=== PATIENT | female | born 1940 | race Caucasian/White ===

== ENCOUNTER → 2017-06-03 | Emergency (ER) | payer OTHER ==
[~2017-06-03] VITALS: Ht 147.3 cm; Wt 64.0 kg
[~2017-06-03] MED LIST: CLONAZEPAM0.5 MG; ESCITALOPRAM OX10 MG; MONTELUKAST SOD10 MG; PREDNISONE10 MG/DOSE PO; SKELAXIN800 MG PO; TYLENOL EXTRA500 MG PO; VALSARTAN-HCTZ1 EAC4
== END | disposition home or self-care (01) ==
LOC: ER 16:26
DX: R42 Dizziness and giddiness (principal)

== ENCOUNTER 2017-07-09 11:32 | Inpatient (IN) | payer OTHER ==
[~2017-07-09] VITALS: Ht 154.9 cm; Wt 63.5 kg
== END 2017-07-12 11:44 | disposition designated cancer center or children's hospital (05) | DRG 282 ==
LOC: ER 11:32 → MEDJ 13:00 → ER 07-10 22:33 → MEDI 07-10 22:33 → MEDJ 07-10 22:33 → SURH 07-11 00:24 → MEDJ 07-11 00:24 → SURH 07-11 00:31 → MEDJ 07-11 07:40 → MEDI 07-11 08:20 → SURH 07-11 08:20 → MEDJ 07-11 08:20
PROC: 4A12X4Z Monitoring of Cardiac Electrical Activity, External Approach (ICD-10-PCS; principal; 2017-07-10)
DX: I21.4 Non-ST elevation (NSTEMI) myocardial infarction (principal); I24.9 Acute ischemic heart disease, unspecified; R42 Dizziness and giddiness; I25.10 Atherosclerotic heart disease of native coronary artery without angina pectoris

== ENCOUNTER 2017-08-19 10:10 | Outpatient (CLI) | payer OTHER | END 2017-08-19 11:00 | disposition home or self-care (01) | LOC: NUCLEAR 10:10 | DX: I20.1 Angina pectoris with documented spasm (principal); I25.118 Atherosclerotic heart disease of native coronary artery with other forms of angina pectoris | CPT/HCPCS: 78452; 93017; A9500 ==

== ENCOUNTER → 2017-12-09 | Outpatient (CLI) | payer OTHER | END | disposition home or self-care (01) | LOC: MRI 09:34 | DX: M54.5 Low back pain (principal); M54.16 Radiculopathy, lumbar region | CPT/HCPCS: 72148 ==

== ENCOUNTER → 2018-01-20 | Outpatient (CLI) | payer OTHER | END | disposition home or self-care (01) | LOC: RAD 11:22 | DX: J45.998 Other asthma (principal) ==

== ENCOUNTER → 2018-05-25 | Outpatient (CLI) | payer OTHER | END | disposition home or self-care (01) | LOC: RAD 11:50 | DX: M17.12 Unilateral primary osteoarthritis, left knee (principal) ==

== ENCOUNTER → 2020-05-21 | Outpatient (CLI) | payer OTHER | END | disposition home or self-care (01) | LOC: RAD 15:27 | PROVIDERS: ATTEND Physical Medicine & Rehabilitation | DX: M43.17 Spondylolisthesis, lumbosacral region (principal); M19.071 Primary osteoarthritis, right ankle and foot; M54.5 Low back pain; M20.41 Other hammer toe(s) (acquired), right foot; M20.42 Other hammer toe(s) (acquired), left foot ==

== ENCOUNTER 2022-04-28 15:02 | Outpatient (CLI) | payer OTHER | END 2022-04-28 15:30 | disposition home or self-care (01) | LOC: TOM 15:02 | PROVIDERS: ATTEND Physical Medicine & Rehabilitation | DX: M54.17 Radiculopathy, lumbosacral region (principal); M54.6 Pain in thoracic spine ==

== ENCOUNTER 2024-05-01 10:04 | Outpatient (CLI) | payer OTHER | END 2024-05-01 10:15 | disposition home or self-care (01) | LOC: RAD 10:04 | PROVIDERS: ATTEND Pathology Anatomic Pathology & Clinical Pathology | DX: J45.50 Severe persistent asthma, uncomplicated (principal) ==

== ENCOUNTER 2024-06-05 12:32 | Outpatient (CLI) | payer OTHER | END 2024-06-05 12:37 | disposition home or self-care (01) | LOC: MAMO-SONO 12:32 | PROVIDERS: ATTEND Internal Medicine | DX: Z12.31 Encounter for screening mammogram for malignant neoplasm of breast (principal) ==

== ENCOUNTER 2025-01-12 12:12 | Outpatient (CLI) | payer OTHER | END 2025-01-12 12:15 | disposition home or self-care (01) | LOC: RAD 12:12 | DX: K40.90 Unilateral inguinal hernia, without obstruction or gangrene, not specified as recurrent (principal); Z01.811 Encounter for preprocedural respiratory examination ==